=== PATIENT | female | born 1995 | race Caucasian/White ===

== ENCOUNTER 2025-03-09 10:33 | Emergency (ER) | payer MEDICAID, SELFPAY ==
[2025-03-09 10:34] VITALS: BMI 29.2
[2025-03-09 11:02] VITALS: BP 150/94; PULSE 79; RESP 18; TEMP 37.6; O2SAT 98
--- NOTE | 2025-03-09 11:20 | PD.EDRME ---
Rapid Medical Screening Exam [facility] Arrival date/time: 03/09/25 10:33 This is a 30-year-old female that comes into the emergency room with complaints of epigastric pain that radiates to her chest sometimes. Patient was seen here in December for GERD like symptoms. Patient does not describe her pain as a burning sensation in her stomach she states is a dull pain that is always there. Patient was seen at the clinic this morning and said it got worse. Patient has a low-grade temp upon arrival. Patient denies any other symptoms. I have greeted and performed a focused initial assessment of this patient. Initial appropriate labs ordered at this time. A comprehensive ED assessment and evaluation of the patient and analysis of all test and completion of medical decision making process will be conducted by additional ED provider. Chief Complaint: Abdominal Pain Time Seen by Provider: 03/09/25 10:56 Vital signs: Vital Signs Temperature 99.6 F 03/09/25 11:02 Pulse Rate 79 03/09/25 11:02 Respiratory Rate 18 03/09/25 11:02 Blood Pressure 150/94 H 03/09/25 11:02 Pulse Oximetry (%) 98 03/09/25 11:02 Oxygen Delivery Method Room Air 03/09/25 11:02
[2025-03-09] MEDS: IBUPROFEN TAB 400 MG TABLET 800 MG PO (11:28)
[2025-03-09] MEDS: MG HYD/AL HYD/SIME (Maalox Reg) SUSP 30 ML UDC PO (11:29)
[2025-03-09 11:36] LABS: Collection Type, Urine Voided
[2025-03-09 11:58] LABS: Bilirubin,Urine Negative (Negative); Blood,Urine Negative (Negative); Color,Urine Lt-Yellow (Lt Yel-Yel); Culture Indicated,Urine Not Indicated; Glucose, Urine Negative (Negative); Ketones,Urine Negative (Negative); Leukocyte Esterase,Urine Negative (Negative); Nitrite,Urine Negative (Negative); PH,Urine 8.0 (5.0-7.0); Protein,Urine Negative (Neg - Trace); RBC,Urine 4 /hpf (0-3); Specific Gravity,Urine 1.023 (1.001-1.035); Squamous Epithelial Cell,Urine 14 /hpf (0-5); Urobilinogen,Urine Negative mg/dL (0.0-1.0); WBC,Urine 3 /hpf (0-5)
[2025-03-09 11:59] LABS: Clarity,Urine Hazy (Clear/Hazy)
[2025-03-09 12:00] LABS: HCG Qualitative,Urine Negative
[2025-03-09 12:10] LABS: Basophils # (Auto) 0.0 Thou/mm3 (0.0-0.2); Basophils % (Auto) 1 % (0-2.5); Eosinophils # (Auto) 0.1 Thou/mm3 (0.0-0.5); Eosinophils % (Auto) 1 % (0-10); Hematocrit 39.0 % (36.0-46.0); Hemoglobin 13.6 g/dL (12.0-16.0); Immature Granulocytes Auto 0.02 Thou/mm3 (0.00-0.00); Lymphocytes # (Auto) 1.6 Thou/mm3 (1.0-4.8); Lymphocytes % (Auto) 21 % (10-50); Mean Corpuscular HGB Conc 34.9 g/dl (31.0-37.0); Mean Corpuscular Hemoglobin 32.1 pg (25.0-35.0); Mean Corpuscular Volume 92 fL (80-100); Monocytes # (Auto) 0.6 Thou/mm3 (0.0-0.8); Monocytes % (Auto) 8 % (0-12); Neutrophils # (Auto) 5.2 Thou/mm3 (1.8-7.7); Neutrophils % (Auto) 69 % (37-80); Nucleated Red Blood Cell # 0.00 Thou/mm3 (0.00-0.00); Nucleated Red Blood Cell % 0 /100 WBC (0); Platelet Count 207 Thou/mm3 (140-440); RDW Standard Deviation 43.8 fL (36.4-46.3); Red Blood Count 4.24 Miln/mm3 (4.00-5.20); White Blood Count 7.5 Thou/mm3 (3.6-11.0)
[2025-03-09 12:35] LABS: Amphetamine/Methamp Scrn,U Negative (Negative); Barbiturate Screen,Urine Negative (Negative); Benzodiazepines Screen,Urine Negative (Negative); Benzoylecgonine Screen, Ur Negative (Negative); Fentanyl Screen,Urine Negative (Negative); Opiate Screen,Urine Negative (Negative); THC Screen,Urine Negative (Negative)
--- NOTE | 2025-03-09 13:50 | PC.NURSE ---
PT CAME TO TRIAGE DESK SAYING IT'S TAKING TOO LONG. SIGNED AMA FORM AND LEFT
[2025-03-09 14:24] LABS: Alanine Aminotransferase 16 U/L (10-49); Albumin, Serum 4.7 gm/dL (3.5-5.0); Albumin/Globulin Ratio 1.6 (1.2-2.2); Alkaline Phosphatase 62 U/L (46-116); Anion Gap 10 (7-16); Aspartate Amino Transferase 19 U/L (0-34); BUN/Creatinine Ratio 9 Ratio (12-20); Bilirubin,Total 0.8 mg/dL (0.3-1.2); Blood Urea Nitrogen 6 mg/dL (9-23); Calcium 9.5 mg/dL (8.3-10.6); Calcium (Corrected) 9.5 mg/dL (8.5-10.1); Carbon Dioxide 25.7 mMol/L (20.0-31.0); Chloride 107 mMol/L (98-107); Creatinine (Component) 0.7 mg/dL (0.6-1.3); Estimated Creatinine Clearance 118.1 mL/min (>60); Globulin 2.9 gm/dL (2.3-3.5); Glucose 87 mg/dL (74-106); Osmolality,Calculated 281 (275-295); Potassium 4.2 mMol/L (3.4-5.1); Sodium 143 mMol/L (136-145); Total Protein 7.6 gm/dL (5.7-8.2); eGFR > 60 See Note
[2025-03-09 22:03] LABS: Lipase 32 U/L (12-53)
== END 2025-03-09 13:52 | disposition left against medical advice (07) ==
LOC: SERX 11:32
PROVIDERS: Nurse Practitioner Family; Emergency Provider Emergency Medicine; PCP Family Medicine
DX: R10.13 Epigastric pain (principal)
CPT/HCPCS: 36415; 80053; 80307; 81001; 81025; 83690; 85025; 87400; 87811; 99283; A9270

== ENCOUNTER 2025-03-12 16:19 | Emergency (ER) | payer MEDICAID, SELFPAY ==
[2025-03-12 17:10] VITALS: BP 133/88; PULSE 80; RESP 16; TEMP 36.9; O2SAT 99
--- NOTE | 2025-03-12 17:43 | XR_ITS ---
Examination: Abdomen sonogram, Limited Date and time of exam: March 12, 2025, 1746 hrs. Indications: Right upper abdominal pain and nausea beginning 2 weeks ago. Technique: Real-time casey scale transabdominal sonographic images of the upper abdomen obtained. Findings: Normal gallbladder. Normal common bile duct 0.2 cm. Pancreatic head 3.0 cm. Liver 13.0 cm fatty infiltration. Normal hepatopedal portal venous flow. Patent IVC. Impression: Normal gallbladder.
--- NOTE | 2025-03-12 17:50 | PD.EDRME ---
Rapid Medical Screening Exam RME Arrival date/time: 03/12/25 16:19 30-year-old female presents the emergency department today complains of nausea and upper abdominal pain ongoing for last couple of weeks Chief Complaint: Chest Pain Time Seen by Provider: 03/12/25 16:47 Vital signs: Vital Signs Temperature 98.5 F 03/12/25 17:10 Pulse Rate 80 03/12/25 17:10 Respiratory Rate 16 03/12/25 17:10 Blood Pressure 133/88 H 03/12/25 17:10 Pulse Oximetry (%) 99 03/12/25 17:10 Oxygen Delivery Method Room Air 03/12/25 17:10
[2025-03-12 18:47] LABS: Basophils # (Auto) 0.0 Thou/mm3 (0.0-0.2); Basophils % (Auto) 1 % (0-2.5); Eosinophils # (Auto) 0.1 Thou/mm3 (0.0-0.5); Eosinophils % (Auto) 1 % (0-10); Hematocrit 37.4 % (36.0-46.0); Hemoglobin 13.1 g/dL (12.0-16.0); Immature Granulocytes Auto 0.02 Thou/mm3 (0.00-0.00); Lymphocytes # (Auto) 2.4 Thou/mm3 (1.0-4.8); Lymphocytes % (Auto) 29 % (10-50); Mean Corpuscular HGB Conc 35.0 g/dl (31.0-37.0); Mean Corpuscular Hemoglobin 32.0 pg (25.0-35.0); Mean Corpuscular Volume 91 fL (80-100); Monocytes # (Auto) 0.7 Thou/mm3 (0.0-0.8); Monocytes % (Auto) 9 % (0-12); Neutrophils # (Auto) 4.9 Thou/mm3 (1.8-7.7); Neutrophils % (Auto) 60 % (37-80); Nucleated Red Blood Cell # 0.00 Thou/mm3 (0.00-0.00); Nucleated Red Blood Cell % 0 /100 WBC (0); Platelet Count 217 Thou/mm3 (140-440); RDW Standard Deviation 41.9 fL (36.4-46.3); Red Blood Count 4.10 Miln/mm3 (4.00-5.20); White Blood Count 8.2 Thou/mm3 (3.6-11.0)
[2025-03-12 18:50] LABS: Alanine Aminotransferase 12 U/L (10-49); Albumin, Serum 4.5 gm/dL (3.5-5.0); Albumin/Globulin Ratio 1.7 (1.2-2.2); Alkaline Phosphatase 62 U/L (46-116); Anion Gap 9 (7-16); Aspartate Amino Transferase 16 U/L (0-34); BUN/Creatinine Ratio 9 Ratio (12-20); Bilirubin,Total 0.4 mg/dL (0.3-1.2); Blood Urea Nitrogen 7 mg/dL (9-23); Calcium 9.3 mg/dL (8.3-10.6); Calcium (Corrected) 9.3 mg/dL (8.5-10.1); Carbon Dioxide 27.0 mMol/L (20.0-31.0); Chloride 107 mMol/L (98-107); Creatinine (Component) 0.8 mg/dL (0.6-1.3); Globulin 2.7 gm/dL (2.3-3.5); Glucose 81 mg/dL (74-106); Osmolality,Calculated 281 (275-295); Potassium 3.5 mMol/L (3.4-5.1); Sodium 143 mMol/L (136-145); Total Protein 7.2 gm/dL (5.7-8.2); eGFR > 60 See Note
[2025-03-12] MEDS: FAMOTIDINE 20 MG TABLET 40 MG PO (18:59)
[2025-03-12] MEDS: ONDANSETRON ODT 4 MG TABRAP PO (19:00)
[2025-03-12 19:01] LABS: Lipase 35 U/L (12-53)
--- NOTE | 2025-03-12 19:04 | PD.EDABDPN ---
ED Abdominal Pain RME/HPI General Chief Complaint: Chest Pain Stated complaint: CHEST PAIN X 2 DAYS Time seen by provider: 03/12/25 16:47 Arrival date/time: 03/12/25 16:19 RME / HPI RME / HPI narrative: 03/12/25 16:19 30-year-old female presents the emergency department today complains of nausea and upper abdominal pain ongoing for last couple of weeks See [facility] for Dr. Shay's HPI documentation. Related Data Previous Rx's ?Medication ?Instructions ?Recorded aluminum-mag hydroxide-simethicone 10 ml PO TID PRN indigestion #300 01/06/24 400 mg-400 mg-40 mg/5 mL oral susp mL (Maalox Maximum Strength) pantoprazole 40 mg tablet,delayed 40 mg PO QDAY #20 tabs 01/06/24 release (Protonix) famotidine 40 mg tablet 40 mg PO .bedtime #30 tabs 03/12/25 omeprazole 40 mg capsule,delayed 40 mg PO QDAY #30 caps 03/12/25 release ondansetron 4 mg disintegrating 4 mg PO TID PRN nausea and 03/12/25 tablet vomiting 30 days #10 tabs Allergies Allergy/AdvReac Type Severity Reaction Status Date / Time No Known Allergies Allergy Verified 03/12/25 16:21 Review of Systems Review of Systems Systems Reviewed: All systems reviewed, normal except as documented Past Medical History Past Medical History NEUROLOGIC: Positive Neurological Disorders and Spina Bifida (born with); Negative Seizures CARDIAC: Negative Cardiac Disorders or Congestive Heart Failure RESPIRATORY: Negative Chronic Obstructive Pulmonary Disease (COPD) GASTROINTESTINAL: Negative Gastrointestinal Disorders, Hepatitis or Colorectal Cancer GENITOURINARY: Negative Genitourinary Disorders, Renal Disease or Prostate Cancer REPRODUCTIVE: Negative Breast Cancer or Testicular Cancer MUSCULOSKELETAL: Positive Musculoskeletal Disorders; Negative Bone Cancer ENDOCRINE: Negative Endocrine Disorders, Diabetes Mellitus Type 1 or Diabetes Mellitus Type 2 HEMATOLOGIC: Negative Blood Disorders PSYCHO/SOCIAL: Positive Anxiety OTHER HISTORY: Negative Hospitalization, Autoimmune Disease, Down Syndrome, Developmental Delay, Shingles, Falls, Blood Transfusions, Blood Transfusion Reaction, Anesthesia Reactions, Organ Transplant, Chemotherapy, Radiation Therapy, Hyperbaric Therapy, MRSA, VRSA, Vancomycin-Resistant Enterococci, Human Immunodeficiency Virus (HIV), Chicken Pox, Measles, Mumps, Rubella ([place]ibian Measles), Pertussis, Clostridium Difficile, Breast Cancer, Cervical Cancer, Colorectal Cancer, Lung Cancer, Ovarian Cancer, Prostate Cancer or Testicular Cancer Family History FAMILY HISTORY: Negative Family Cancer, Family Surgery or Family Anesthesia Reaction Surgical History SURGICAL: Positive Section; Negative Organ Transplant Social History SMOKING STATUS: Never smoker ED Exam Narrative Physical exam: See [facility] for Dr. Shay's physical exam documentation. Course Quality Measures none Orders Category Date Time Status US gall bladder Stat Exams 03/12/25 17:43 Completed CBC Stat Lab 03/12/25 18:17 Completed Comprehensive Metabolic Panel Stat Lab 03/12/25 18:17 Completed Lipase Stat Lab 03/12/25 18:17 Completed Famotidine [Pepcid] Med 03/12/25 17:44 Discontinued 40 mg PO X1 ONE Ondansetron Odt [Zofran Odt] Med 03/12/25 17:44 Discontinued 4 mg PO X1 ONE Vital Signs Vital signs: Vital Signs Temperature 98.5 F 03/12/25 17:10 Pulse Rate 80 03/12/25 17:10 Respiratory Rate 16 03/12/25 17:10 Blood Pressure 133/88 H 03/12/25 17:10 Pulse Oximetry (%) 99 03/12/25 17:10 Oxygen Delivery Method Room Air 03/12/25 17:10 Abdominal Pain [facility] Narrative [facility] Narrative:: This section includes all my notes and documentations, including HPI, PE, and ED course. Ismael Shay MD HPI: 30yo female here with several months of epigastric pain and nausea. Worse in the past week. No vomiting or fever. No other complaints reported. ROS: All negative except as documented in HPI. Physical Exam: General: Alert and oriented. No acute distress when remaining still. Eyes: Conjunctivae and lids clear. ENT: No nasal congestion. Neck: Supple. Heart: RRR. Lungs: No respiratory distress. Good air movement. No rhonchi, wheezing, rales. Abdomen: Soft and mild epigastric tenderness. Normal bowel sounds. No distension. No rebound or guarding. Skin: Warm and dry. Neuro: Alert and oriented X 3. I reviewed all diagnostic test results. My review of the gallbladder US report is NAD. Blood tests are unremarkable. At this point, diagnoses include: Stomach ulcer With Zofran ODT 4 mg and oral famotidine 40 mg, she felt better. Recommend outpatient management. Based on my best medical judgment, made decision no further evaluation or treatment indicated at this time. Patient understands and agrees to the discharge instructions customized and printed, see below. Discharge instructions from Dr. Shay: ?After evaluation, your symptoms are due to stomach ulcer (see attached handout). ?To help heal the ulcer, take Omeprazole 40 mg every morning and Famotidine 40 mg at bedtime for a month. ?Zofran for nausea/vomiting. Clear liquid diet for 24 hours. Then slowly advance diet as tolerated. ?Avoid food and beverages that can trigger and worsen ulcers. See attached handout. ?See a private doctor on 03/14/2025 for recheck. Ask to review all test results and official radiology reports, to make sure you receive all necessary follow-ups and monitoring. Ask for help until you are completely better. To make sure there is no other serious intra-abdominal condition, ask for help with more investigation not available here in the ER. Such as EGD or scoping the stomach, colonoscopy or scoping the colon, and referral to see registrar nurses' registry. ?Seek immediate medical care with worsening or with any concerns. Ismael Shay MD Patient data External records reviewed:: [facility] previous records (Per chart review, patient was seen here on 01/06/24 for chest pain 2/2 GERD.) Clinical information provided by:: patient Social determinants that could affect healthcare access:: none Patient has the following chronic illnesses:: spina bifida How is presenting disease/condition affected by chronic disease/condition?: uneffected by Evaluation data The following diagnostics were reviewed and interpreted by me:: lab results and radiology exam(s) Lab and/or radiology exams considered but not ordered:: none Interpretation Summary: I reviewed all diagnostic test results. My review of the gallbladder US report is NAD. Blood tests are unremarkable. Medications / Prescriptions Medications or Prescriptions considered but not ordered:: none Medication administrations:: Medication Administration History Discontinued Medications Famotidine (Famotidine 20 Mg Tablet) 40 mg PO X1 ONE Stop: 03/12/25 17:45 Last Admin: 03/12/25 18:59 Dose: 40 mg Documented By: OA Ondansetron HCl (Ondansetron Odt 4 Mg Tabrap) 4 mg PO X1 ONE; Protocol Stop: 03/12/25 17:45 Last Admin: 03/12/25 19:00 Dose: 4 mg Documented By: OA Zofran ODT 4 mg and oral famotidine 40 mg Consultations Consultation(s) initiated? (list below): No Diagnosis Differential diagnosis abdominal pain: diverticulitis, pancreatitis and other (gastritis, GERD, PUD, biliary colic) Most likely diagnosis given after review of the tests above:: Stomach ulcer Admission Indicated Admission indicated?: not indicated Explain why admission is indicated or not indicated:: With improvement and no condition needing emergent intervention, there was no indication for admission. Admission Request Was there a request for admission?: No Disposition Plan Disposition Plan: Discharge Discharge Attestation Discharge Attestation: The patient and all family members were given an opportunity to ask questions and understood the discharge instructions. Discharge instructions specifically effects, indications for sooner follow up or return to the emergency department, and the expected course of current diagnosis. Patient condition: Stable Discharge Plan Plan Patient Disposition: HOME (Self Care) Prescriptions/Referrals Prescriptions/Med Rec: New famotidine 40 mg tablet 40 mg PO .bedtime Qty: 30 0RF omeprazole 40 mg capsule,delayed release(DR/EC) 40 mg PO QDAY Qty: 30 0RF ondansetron 4 mg tablet,disintegrating 4 mg PO TID PRN (Reason: nausea and vomiting) 30 Days Qty: 10 0RF No Action pantoprazole [Protonix] 40 mg tablet,delayed release (DR/EC) 40 mg PO QDAY Qty: 20 0RF alum-mag hydroxide-simeth [Maalox Maximum Strength] 400-400-40 mg/5 mL suspension 10 ml PO TID PRN (Reason: indigestion) Qty: 300 0RF Referrals: Shaun Porter MD [Primary Care Provider, Family Practice] - In 1 week Problem List Clinical Impression: Stomach ulcer Patient/Caregiver Discharge Instructions Discharge Activity: activity as tolerated Education Materials: ED PEPTIC ULCER vs GASTRITIS Additional Instructions: Discharge instructions from Dr. Shay: ?After evaluation, your symptoms are due to stomach ulcer (see attached handout).? ?To help heal the ulcer, take Omeprazole 40 mg every morning and Famotidine 40 mg at bedtime for a month. ?Zofran for nausea/vomiting.? Clear liquid diet for 24 hours.? Then slowly advance diet as tolerated. ?Avoid food and beverages that can trigger and worsen ulcers.? See attached handout. ?See a private doctor on 03/14/2025 for recheck. Ask to review all test results and official radiology reports, to make sure you receive all necessary follow-ups and monitoring. Ask for help until you are completely better. To make sure there is no other serious intra-abdominal condition, ask for help with more investigation not available here in the ER.? Such as EGD or scoping the stomach, colonoscopy or scoping the colon, and referral to see registrar nurses' registry. ?Seek immediate medical care with worsening or with any concerns. Print Language: Bengali Stand Alone Forms: [facility] Award Info., Patient Portal Info Letter
[2025-03-12 19:12] VITALS: BP 128/76; PULSE 76; RESP 18; TEMP 36.8; O2SAT 98
== END 2025-03-12 19:13 | disposition home or self-care (01) ==
PROVIDERS: Nurse Practitioner Primary Care; Emergency Provider Emergency Medicine; PCP Family Medicine
DX: K25.9 Gastric ulcer, unspecified as acute or chronic, without hemorrhage or perforation (principal)
CPT/HCPCS: 36415; 76705; 80053; 81001; 81025; 83690; 85025; 99283; Q0162; A9270